=== PATIENT | male | born 1950 | race Caucasian/White ===

== ENCOUNTER 2020-11-30 14:54 | Observation (INO) ==
[2020-11-30 15:55] LABS: Basophils # 0.1 K/mcL (0.0-0.2); Basophils % 0.8 %; Eosinophils # 0.3 K/mcL (0.0-0.6); Eosinophils % 3.1 %; Hematocrit 31.3 % (37.5-50.1); Hemoglobin 9.8 g/dL (12.9-16.9); Immature Granulocytes % 0.3 % (0-4); Lymphocytes # 0.9 K/mcL (0.6-4.6); Lymphocytes % 9.4 %; Mean Corpuscular HGB Conc 31.3 g/dL (31.6-35.5); Mean Corpuscular Volume 92.6 fL (83.0-100.0); Mean Platelet Volume 10.6 fL (9.4-12.4); Monocytes # 0.5 K/mcL (0.0-1.3); Monocytes % 5.1 %; Neutrophils # 8.1 K/mcL (1.6-8.9); Platelet Count 261 K/mcL (140-400); Red Blood Count 3.38 M/mcL (4.19-5.50); Red Cell Distribution Width 15.5 % (11.5-14.5); Segmented Neutrophils % 81.3 %
[2020-11-30] MEDS ORDERED: Furosemide 40 MG/4 ML VIAL IVP ONE (16:08)
[2020-11-30 16:14] LABS: Alanine Aminotransferase 11 Units/L (7-52); Albumin 3.8 g/dL (3.5-5.7); Alkaline Phosphatase 82 Units/L (34-104); Aspartate Amino Transferase 12 Units/L (13-39); BUN/Creatinine Ratio 16 (6-26); Bilirubin,Total 0.4 mg/dL (0.3-1.0); Blood Urea Nitrogen 36 mg/dL (8-23); Calcium 8.7 mg/dL (8.6-10.3); Carbon Dioxide 21 mEq/L (23-29); Chloride 108 mEq/L (98-107); Globulin 3.8 g/dL (2.4-3.5); Glucose 161 mg/dL (70-105); Magnesium 1.8 mg/dL (1.6-2.6); Osmolality,Calculated 298 (280-300); Phosphorous 3.6 mg/dL (2.7-4.5); Potassium 4.3 mEq/L (3.5-5.1); Sodium 138 mEq/L (136-145); Total Protein 7.6 g/dL (6.4-8.9); eGFR For African Americans 35 (> 60); eGFR For Non-African Americans 29 (> 60)
[2020-11-30 16:15] LABS: Troponin I < 0.03 ng/mL (< 0.04)
[2020-11-30 16:16] LABS: INR 1.3; Prothrombin Time 14.4 Seconds (9.4-12.1)
[2020-11-30 16:18] LABS: Activated Partial Thrombo Time 24.2 Seconds (26.0-36.0)
[2020-11-30 16:19] LABS: D-Dimer 1259 ng/mLFEU (0-500); Heparin anti-factor XA UFH < 0.04 IU/mL (0.30-0.70)
[2020-11-30 17:21] LABS: Bilirubin,Urine Negative (Negative); Blood,Urine Trace-intact (Negative); Clarity,Urine Clear (Clear); Color,Urine Yellow (Yellow); Glucose,Urine (UA) Normal (Normal); Ketones,Urine Negative (Negative); Leukocyte Esterase,Urine Negative (Negative); Nitrite,Urine Negative (Negative); PH,Urine 6.5 pH Units (5.0-8.0); Protein,Urine 30 mg/dL (Neg-Trace); Urobilinogen,Urine Normal (Normal)
[2020-11-30 17:24] LABS: Bacteria,Urine Few per hpf (None-Few); RBC,Urine 0-3 per hpf (0-3); WBC,Urine 0-3 per hpf (0-3)
[2020-11-30] MEDS ORDERED: Nitroglycerin 0.4 MG TAB.SUBL SL PRN (19:01)
[2020-11-30] MEDS ORDERED: Naloxone 0.4 MG/ML INJ IVP PRN (19:01)
[2020-11-30] MEDS ORDERED: VITAMIN D2 PO SCH (19:30)
[2020-11-30] MEDS ORDERED: *HR* Enoxaparin 120 MG/0.8 ML SYRINGE SQ SCH (19:30)
[2020-11-30] MEDS ORDERED: CALCIUM CARBONATE PO SCH (19:30)
[2020-11-30] MEDS ORDERED: NIFEdipine XL (24 HR) 60 MG TAB.ER.24 PO SCH (21:00)
[2020-11-30] MEDS ORDERED: Loratadine 10 MG TABLET PO SCH (21:00)
[2020-11-30] MEDS: Metoprolol XL (24 HR) Succ 50 MG TAB.ER.24H PO SCH (22:41)
[2020-12-01 06:23] LABS: Basophils # 0.1 K/mcL (0.0-0.2); Basophils % 0.5 %; Eosinophils # 0.4 K/mcL (0.0-0.6); Eosinophils % 4.2 %; Hemoglobin 9.4 g/dL (12.9-16.9); Immature Granulocytes % 0.3 % (0-4); Lymphocytes % 10.5 %; Mean Corpuscular HGB Conc 31.3 g/dL (31.6-35.5); Mean Corpuscular Volume 92.6 fL (83.0-100.0); Mean Platelet Volume 10.1 fL (9.4-12.4); Monocytes # 0.6 K/mcL (0.0-1.3); Monocytes % 6.2 %; Neutrophils # 7.1 K/mcL (1.6-8.9); Platelet Count 262 K/mcL (140-400); Red Blood Count 3.24 M/mcL (4.19-5.50); Red Cell Distribution Width 15.3 % (11.5-14.5); Segmented Neutrophils % 78.3 %; White Blood Count 9.1 K/mcL (4.3-11.1)
[2020-12-01 06:38] LABS: Calcium 8.9 mg/dL (8.6-10.3)
[2020-12-01] MEDS ORDERED: NIFEdipine XL (24 HR) 30 MG TAB.ER.24 PO SCH (09:00)
[2020-12-01] MEDS ORDERED: Aspirin Enteric Coated 81 MG Tablet PO SCH (09:00)
[2020-12-01] MEDS ORDERED: Furosemide 40 MG/4 ML VIAL IVP SCH (09:00)
[2020-12-01] MEDS ORDERED: Insulin DETEMIR 100 UNIT/ML X5UNITS SUBQ SCH (09:00)
[2020-12-01] MEDS ORDERED: (Linagliptin [Tradjenta] 5 MG Tablet) PO SCH (09:00)
[2020-12-01] MEDS ORDERED: UBIQUINOL 100 MG PO SCH (09:00)
[2020-12-01] MEDS ORDERED: Furosemide 80 MG in 0.9 % Sodium Chloride 50 ML IV SCH (09:00)
[2020-12-01] MEDS: Metoprolol XL (24 HR) Succ 50 MG TAB.ER.24H PO SCH (09:06)
[2020-12-01 11:17] VITALS: BP 119/67
[2020-12-01 13:54] LABS: Estimated Average Glucose 180 mg/dl; Hemoglobin A1C 7.9 %
== END 2020-12-01 13:44 | disposition home or self-care (01) ==
LOC: INPGRE 14:54 → EMEROOGRE 14:54 → INPGRE 18:34
PROVIDERS: ADMIT Family Medicine; ATTEND Family Medicine

== ENCOUNTER 2021-08-19 11:28 | Inpatient (IN) ==
[2021-08-19] MEDS ORDERED: 0.9 % Sodium Chloride 1,000 ML IV ONE (11:41)
[2021-08-19] MEDS ORDERED: levoFLOXacin 750 MG/150 ML 750 MG/150 ML BAG IVPB STA (11:41)
[2021-08-19 12:53] LABS: Basophils # 0.1 K/mcL (0.0-0.2); Basophils % 0.3 %; Eosinophils # 0.1 K/mcL (0.0-0.6); Eosinophils % 0.7 %; Hematocrit 32.7 % (37.5-50.1); Hemoglobin 10.4 g/dL (12.9-16.9); Immature Granulocytes % 0.5 % (0-4); Lymphocytes # 1.2 K/mcL (0.6-4.6); Lymphocytes % 6.3 %; Mean Corpuscular HGB Conc 31.8 g/dL (31.6-35.5); Mean Corpuscular Hemoglobin 29.6 pg (28.0-33.3); Mean Corpuscular Volume 93.2 fL (83.0-100.0); Mean Platelet Volume 10.6 fL (9.4-12.4); Monocytes # 0.8 K/mcL (0.0-1.3); Monocytes % 4.2 %; Platelet Count 265 K/mcL (140-400); Red Blood Count 3.51 M/mcL (4.19-5.50); Red Cell Distribution Width 14.8 % (11.5-14.5); White Blood Count 18.2 K/mcL (4.3-11.1)
[2021-08-19] MEDS ORDERED: Isovue-370 500 ML BOTTLE IVP ONE ×2 (13:02→16:31)
[2021-08-19 13:06] LABS: Albumin 3.6 g/dL (3.5-5.7); Albumin/Globulin Ratio 0.9 (1.1-2.2); Bilirubin,Total 0.4 mg/dL (0.3-1.0); Calcium 8.9 mg/dL (8.6-10.3); Globulin 3.9 g/dL (2.4-3.5); Total Protein 7.5 g/dL (6.4-8.9)
[2021-08-19] MEDS ORDERED: Piperacillin/Tazobactam 3.375 GM in 0.9 % Sodium Chloride Mini Bag 100 ML IVPB SCH ×2 (16:00→18:00)
[2021-08-19] MEDS ORDERED: 0.9 % Sodium Chloride 1,000 ML IVC SCH (16:31)
[2021-08-19] MEDS ORDERED: Nitroglycerin 0.4 MG TAB.SUBL SL PRN (16:31)
[2021-08-19] MEDS ORDERED: Naloxone 0.4 MG/ML INJ IVP PRN (16:31)
[2021-08-19] MEDS ORDERED: Furosemide 20 MG TABLET PO SCH ×2 (17:15→21:00)
[2021-08-19 17:16] LABS: Basophils # 0.1 K/mcL (0.0-0.2); Basophils % 0.3 %; Eosinophils # 0.2 K/mcL (0.0-0.6); Eosinophils % 0.9 %; Hematocrit 32.4 % (37.5-50.1); Hemoglobin 10.3 g/dL (12.9-16.9); Immature Granulocytes % 0.5 % (0-4); Lymphocytes # 1.6 K/mcL (0.6-4.6); Lymphocytes % 8.8 %; Mean Corpuscular HGB Conc 31.8 g/dL (31.6-35.5); Mean Corpuscular Hemoglobin 29.6 pg (28.0-33.3); Mean Corpuscular Volume 93.1 fL (83.0-100.0); Mean Platelet Volume 9.7 fL (9.4-12.4); Monocytes # 0.9 K/mcL (0.0-1.3); Monocytes % 5.1 %; Neutrophils # 15.1 K/mcL (1.6-8.9); Platelet Count 246 K/mcL (140-400); Red Blood Count 3.48 M/mcL (4.19-5.50); Red Cell Distribution Width 14.8 % (11.5-14.5); Segmented Neutrophils % 84.4 %; White Blood Count 17.9 K/mcL (4.3-11.1)
[2021-08-19 17:48] LABS: Calcium 8.8 mg/dL (8.6-10.3); Potassium 4.3 mEq/L (3.5-5.1)
[2021-08-19] MEDS ORDERED: Doxycycline 100 MG in 0.9 % Sodium Chloride Mini Bag 100 ML IVPB SCH (18:00)
[2021-08-19] MEDS ORDERED: *HR* Dextrose 50 % in Water (Syg) 50 ML SYRINGE IVP PRN (18:37)
[2021-08-19] MEDS ORDERED: D5% in Water 1,000 ML IVC PRN (18:37)
[2021-08-19] MEDS ORDERED: Dextrose Gel 15 GM/37.5 ML TUBE PO PRN ×2 (18:37)
[2021-08-19] MEDS ORDERED: *HR* OxyCODONE Immed Rel 5 MG TABLET PO PRN (19:36)
[2021-08-19] MEDS ORDERED: Apixaban 2.5 MG TABLET PO SCH (21:00)
[2021-08-19] MEDS ORDERED: Metoprolol XL (24 HR) Succ 50 MG TAB.ER.24H PO SCH (21:00)
[2021-08-19] MEDS ORDERED: Insulin DETEMIR 100 UNIT/ML per UNIT SUBQ ONE ×2 (21:00)
[2021-08-19] MEDS ORDERED: NIFEdipine XL (24 HR) 30 MG TAB.ER.24 PO SCH (21:00)
[2021-08-19] MEDS ORDERED: Insulin DETEMIR 100 UNIT/ML X5UNITS SUBQ SCH (21:00)
[2021-08-19] MEDS ORDERED: *HR* Heparin 5,000 UNIT/ML VIAL SQ SCH (22:00)
[2021-08-19] MEDS: Apixaban 5 MG TABLET PO SCH (22:36)
[2021-08-19] MEDS: predniSONE 20 MG TABLET PO SCH (22:37)
[2021-08-19] MEDS: cefTRIAXone 2,000 MG in Water for inj. (sterile) 20 ML IVP SCH (22:51)
[2021-08-20 00:42] LABS: Bilirubin,Urine Negative (Negative); Blood,Urine Trace-intact (Negative); Clarity,Urine Slightly Cloudy (Clear); Glucose,Urine (UA) Normal (Normal); Ketones,Urine Negative (Negative); Leukocyte Esterase,Urine Negative (Negative); Nitrite,Urine Negative (Negative); PH,Urine 6.5 pH Units (5.0-8.0); Protein,Urine 100 mg/dL (Neg-Trace); Urobilinogen,Urine Normal (Normal)
[2021-08-20 00:45] LABS: Color,Urine Yellow (Yellow)
[2021-08-20 00:46] LABS: Amorphous Sediment,Urine Few per hpf (None-Few); RBC,Urine 0-3 per hpf (0-3)
[2021-08-20 04:32] LABS: Basophils % 0.1 %; Eosinophils % 0.1 %; Hematocrit 32.7 % (37.5-50.1); Immature Granulocytes % 0.4 % (0-4); Lymphocytes # 0.8 K/mcL (0.6-4.6); Mean Corpuscular HGB Conc 30.6 g/dL (31.6-35.5); Mean Corpuscular Hemoglobin 28.8 pg (28.0-33.3); Mean Corpuscular Volume 94.2 fL (83.0-100.0); Mean Platelet Volume 10.3 fL (9.4-12.4); Monocytes # 0.2 K/mcL (0.0-1.3); Platelet Count 256 K/mcL (140-400); Red Blood Count 3.47 M/mcL (4.19-5.50); Red Cell Distribution Width 14.8 % (11.5-14.5); Segmented Neutrophils % 94.4 %
[2021-08-20 04:36] LABS: INR 1.6; Prothrombin Time 17.8 Seconds (9.4-12.1)
[2021-08-20 04:38] LABS: Neutrophils # 17.9 K/mcL (1.6-8.9)
[2021-08-20 04:39] LABS: Activated Partial Thrombo Time 33.5 Seconds (26.0-36.0)
[2021-08-20 04:47] LABS: Albumin 3.4 g/dL (3.5-5.7); Albumin/Globulin Ratio 0.8 (1.1-2.2); Bilirubin,Total 0.3 mg/dL (0.3-1.0); Globulin 4.1 g/dL (2.4-3.5); Total Protein 7.5 g/dL (6.4-8.9)
[2021-08-20] MEDS ORDERED: UBIQUINOL 100 MG PO SCH (09:00)
[2021-08-20] MEDS ORDERED: Zinc Gluconate 100 MG Tablet PO SCH (09:00)
[2021-08-20] MEDS: Metoprolol XL (24 HR) Succ 50 MG TAB.ER.24H PO SCH (09:56)
[2021-08-20] MEDS: Ascorbic Acid 500 MG TABLET PO SCH (09:57)
[2021-08-20] MEDS: Apixaban 5 MG TABLET PO SCH ×2 (09:57→21:12)
[2021-08-20] MEDS: Aspirin Enteric Coated 81 MG Tablet PO SCH (09:57)
[2021-08-20] MEDS: *HR* Amiodarone 200 MG TABLET PO SCH (09:57)
[2021-08-20] MEDS: predniSONE 20 MG TABLET PO SCH (09:58)
[2021-08-20] MEDS: NIFEdipine XL (24 HR) 30 MG TAB.ER.24 PO SCH (09:58)
[2021-08-20] MEDS: Furosemide 40 MG TABLET PO SCH ×2 (09:58→16:40)
[2021-08-20] MEDS: Insulin LISPRO 300 UNITS/3 ML VIAL SUBQ SCH ×3 (09:59→16:40)
[2021-08-20 12:52] LABS: Estimated Average Glucose 226 mg/dl; Hemoglobin A1C 9.5 %
[2021-08-20] MEDS: allopurinoL 100 MG TABLET PO SCH (13:15)
[2021-08-20] MEDS: Doxycycline 100 MG in 0.9 % Sodium Chloride Mini Bag 100 ML IVPB SCH ×2 (13:16→21:07)
[2021-08-20 13:37] LABS: Bilirubin,Urine Small (Negative); Blood,Urine Large (Negative); Clarity,Urine Cloudy (Clear); Color,Urine Red (Yellow); Glucose,Urine (UA) 100 mg/dL (Normal); Ketones,Urine Negative (Negative); Leukocyte Esterase,Urine Large (Negative); Nitrite,Urine Positive (Negative); PH,Urine 6.5 pH Units (5.0-8.0); Protein,Urine >=300 mg/dL (Neg-Trace); Urobilinogen,Urine Normal (Normal)
[2021-08-20] MEDS ORDERED: Insulin DETEMIR 100 UNIT/ML X5UNITS SUBQ SCH ×3 (21:00)
[2021-08-20] MEDS ORDERED: Insulin DETEMIR 100 UNIT/ML per UNIT SUBQ ONE (21:00)
[2021-08-20] MEDS: cefTRIAXone 2,000 MG in Water for inj. (sterile) 20 ML IVP SCH (21:08)
[2021-08-21] MEDS: Insulin LISPRO 300 UNITS/3 ML VIAL SUBQ SCH ×3 (07:50→17:07)
[2021-08-21] MEDS: Aspirin Enteric Coated 81 MG Tablet PO SCH (09:02)
[2021-08-21] MEDS: NIFEdipine XL (24 HR) 30 MG TAB.ER.24 PO SCH (09:02)
[2021-08-21] MEDS: *HR* Amiodarone 200 MG TABLET PO SCH (09:02)
[2021-08-21] MEDS: Doxycycline 100 MG CAPSULE PO SCH ×2 (09:02→21:35)
[2021-08-21] MEDS: allopurinoL 100 MG TABLET PO SCH (09:03)
[2021-08-21] MEDS: Ascorbic Acid 500 MG TABLET PO SCH (09:03)
[2021-08-21] MEDS: Metoprolol XL (24 HR) Succ 50 MG TAB.ER.24H PO SCH (09:03)
[2021-08-21] MEDS: Apixaban 5 MG TABLET PO SCH (09:03)
[2021-08-21] MEDS: predniSONE 20 MG TABLET PO SCH (09:03)
[2021-08-21 09:40] LABS: Basophils % 0.2 %; Eosinophils % 0.2 %; Hematocrit 36.5 % (37.5-50.1); Hemoglobin 11.1 g/dL (12.9-16.9); Immature Granulocytes % 0.6 % (0-4); Lymphocytes # 1.3 K/mcL (0.6-4.6); Mean Corpuscular HGB Conc 30.4 g/dL (31.6-35.5); Mean Corpuscular Hemoglobin 28.7 pg (28.0-33.3); Mean Corpuscular Volume 94.3 fL (83.0-100.0); Mean Platelet Volume 10.7 fL (9.4-12.4); Monocytes # 0.8 K/mcL (0.0-1.3); Monocytes % 3.5 %; Neutrophils # 19.6 K/mcL (1.6-8.9); Platelet Count 347 K/mcL (140-400); Red Blood Count 3.87 M/mcL (4.19-5.50); Red Cell Distribution Width 14.7 % (11.5-14.5); Segmented Neutrophils % 89.5 %; White Blood Count 21.9 K/mcL (4.3-11.1)
[2021-08-21 09:53] LABS: Albumin 3.8 g/dL (3.5-5.7); Albumin/Globulin Ratio 0.9 (1.1-2.2); Bilirubin,Total 0.3 mg/dL (0.3-1.0); Calcium 9.7 mg/dL (8.6-10.3); Globulin 4.3 g/dL (2.4-3.5); Total Protein 8.1 g/dL (6.4-8.9)
[2021-08-21] MEDS: Insulin DETEMIR 100 UNIT/ML X5UNITS SUBQ SCH (21:29)
[2021-08-21] MEDS: Acetaminophen 325 MG TABLET PO PRN (21:35)
[2021-08-22 06:03] LABS: Basophils % 0.1 %; Eosinophils % 0.1 %; Hematocrit 32.2 % (37.5-50.1); Hemoglobin 9.9 g/dL (12.9-16.9); Immature Granulocytes % 0.6 % (0-4); Lymphocytes % 5.7 %; Mean Corpuscular HGB Conc 30.7 g/dL (31.6-35.5); Mean Corpuscular Hemoglobin 28.9 pg (28.0-33.3); Mean Corpuscular Volume 94.2 fL (83.0-100.0); Mean Platelet Volume 10.1 fL (9.4-12.4); Monocytes # 0.7 K/mcL (0.0-1.3); Monocytes % 4.4 %; Neutrophils # 14.8 K/mcL (1.6-8.9); Platelet Count 275 K/mcL (140-400); Red Blood Count 3.42 M/mcL (4.19-5.50); Red Cell Distribution Width 14.7 % (11.5-14.5); Segmented Neutrophils % 89.1 %; White Blood Count 16.6 K/mcL (4.3-11.1)
[2021-08-22] MEDS: *HR* Heparin 5,000 UNIT/ML VIAL SQ SCH ×2 (06:16→16:46)
[2021-08-22 06:20] LABS: Calcium 9.5 mg/dL (8.6-10.3); Potassium 4.4 mEq/L (3.5-5.1)
[2021-08-22] MEDS: Metoprolol XL (24 HR) Succ 50 MG TAB.ER.24H PO SCH (07:52)
[2021-08-22] MEDS: Ascorbic Acid 500 MG TABLET PO SCH (07:52)
[2021-08-22] MEDS: Acetaminophen 325 MG TABLET PO PRN (07:52)
[2021-08-22] MEDS: Doxycycline 100 MG CAPSULE PO SCH ×2 (07:52→21:04)
[2021-08-22] MEDS: predniSONE 20 MG TABLET PO SCH (07:52)
[2021-08-22] MEDS: *HR* Amiodarone 200 MG TABLET PO SCH (07:52)
[2021-08-22] MEDS: Aspirin Enteric Coated 81 MG Tablet PO SCH (07:52)
[2021-08-22] MEDS: allopurinoL 100 MG TABLET PO SCH (07:53)
[2021-08-22] MEDS: Insulin LISPRO 300 UNITS/3 ML VIAL SUBQ SCH ×3 (07:53→16:46)
[2021-08-22] MEDS: NIFEdipine XL (24 HR) 30 MG TAB.ER.24 PO SCH (07:53)
[2021-08-22] MEDS ORDERED: predniSONE 20 MG TABLET PO ONE (13:49)
[2021-08-22] MEDS: Insulin DETEMIR 100 UNIT/ML X5UNITS SUBQ SCH (21:04)
[2021-08-23 06:16] LABS: Hematocrit 31.9 % (37.5-50.1); Hemoglobin 9.9 g/dL (12.9-16.9); Mean Corpuscular Volume 93.5 fL (83.0-100.0); Mean Platelet Volume 10.4 fL (9.4-12.4); Platelet Count 304 K/mcL (140-400); Red Blood Count 3.41 M/mcL (4.19-5.50); Red Cell Distribution Width 14.8 % (11.5-14.5); White Blood Count 14.5 K/mcL (4.3-11.1)
[2021-08-23] MEDS: *HR* Heparin 5,000 UNIT/ML VIAL SQ SCH (06:33)
[2021-08-23 06:52] LABS: Calcium 9.3 mg/dL (8.6-10.3); Potassium 4.8 mEq/L (3.5-5.1)
[2021-08-23 07:03] VITALS: BP 159/91; PULSE 86; RESP 16; TEMP 97.4
[2021-08-23] MEDS: Doxycycline 100 MG CAPSULE PO SCH (08:02)
[2021-08-23] MEDS: Acetaminophen 325 MG TABLET PO PRN (08:02)
[2021-08-23] MEDS: allopurinoL 100 MG TABLET PO SCH (08:02)
[2021-08-23] MEDS: Aspirin Enteric Coated 81 MG Tablet PO SCH (08:02)
[2021-08-23] MEDS: Metoprolol XL (24 HR) Succ 50 MG TAB.ER.24H PO SCH (08:03)
[2021-08-23] MEDS: Ascorbic Acid 500 MG TABLET PO SCH (08:03)
[2021-08-23] MEDS: *HR* Amiodarone 200 MG TABLET PO SCH (08:03)
[2021-08-23] MEDS: NIFEdipine XL (24 HR) 30 MG TAB.ER.24 PO SCH (08:03)
[2021-08-23] MEDS ORDERED: Furosemide 40 MG TABLET PO SCH (08:30)
[2021-08-23] MEDS: Insulin LISPRO 300 UNITS/3 ML VIAL SUBQ SCH ×2 (08:52→12:56)
[2021-08-23] MEDS ORDERED: predniSONE 20 MG TABLET PO SCH (09:00)
[2021-08-23] MEDS ORDERED: Apixaban 5 MG TABLET PO SCH (09:00)
[2021-08-23 16:20] VITALS: O2SAT 95
[2021-08-25] MEDS ORDERED: Ergocalciferol (VIT D2) 50,000 UNIT (1.25MG) CAP PO SCH (09:00)
== END 2021-08-23 16:23 | disposition home or self-care (01) | DRG 699 ==
LOC: EMEROOGRE 11:28 → INPGRE 11:28
PROVIDERS: ADMIT Family Medicine; ATTEND Family Medicine